=== PATIENT | female | born 1955 | race Caucasian/White ===

== ENCOUNTER 2018-12-23 10:24 | Emergency (ER) | payer OTHER ==
--- NOTE | 2018-12-23 11:01 | UC ---
Throat Pain/Nasal Silvestre HPI - HPI Summary HPI Summary: 63 yo female presents with cold symptoms. She tells me that for the past 4-5 days she has had a sore throat, dry cough, post nasal drip, fatigue, body aches , and hot/cold sweats. She has been taking OTC vitamins and supplements with no change. She has intermittent headaches. She denies sinus symptoms, dizziness, earache, SOB, chest pain, abdominal pain, n/v/d/c, dysuria. She is eating and drinking well. - History of Current Complaint Stated Complaint: SORE THROAT WEAK Time Seen by Provider: 12/23/18 11:01 Hx Obtained From: Patient Onset/Duration: Gradual Onset Severity: Mild Pain Intensity: 3 Pain Scale Used: 0-10 Numeric - Allergies/Home Medications Allergies/Adverse Reactions: Allergies Allergy/AdvReac Type Severity Reaction Status Date / Time No Known Allergies Allergy Verified 12/23/18 11:05 PMH/Surg Hx/FS Hx/Imm Hx - Additional Past Medical History Additional PMH: None - Surgical History Surgical History: None - Family History Known Family History: Positive: Non-Contributory - Social History Lives: With Family Alcohol Use: Occasionally Substance Use Type: None Smoking Status (MU): Never Smoked Tobacco Review of Systems All Other Systems Reviewed And Are Negative: No Constitutional: Positive: Fatigue Skin: Positive: Negative Eyes: Positive: Negative ENT: Positive: Sore Throat Respiratory: Positive: Cough Cardiovascular: Positive: Negative Gastrointestinal: Positive: Negative Neurological: Positive: Negative Psychological: Positive: Negative Physical Exam - Summary Physical Exam Summary: GENERAL: NAD. WDWN. No pain distress. SKIN: No rashes, sores, lesions, or open wounds. HEENT: Head: AT/NC Eyes: EOM intact. Conjunctiva clear without inflammation or discharge. Ears: Hearing grossly normal. TMs intact, no bulging, erythema, or edema. Nose: Nasal mucosa pink and moist. NTTP maxillary and frontal sinus. Throat: Posterior oropharynx with mild erythema and post nasal drip. No exudates or tonsillar enlargement. Uvula midline. NECK: Supple. Left anterior cervical lymph node 1.0cm mobile NTTP. CHEST: CTAB. No accessory muscle use. Breathing comfortably and in no distress. CV: RRR. Pulses intact. Cap refill <2seconds NEURO: Alert. PSYCH: Age appropriate behavior. Triage Information Reviewed: Yes Vital Signs: Vital Signs: Temp Pulse Resp BP Pulse Ox 99.6 F 80 16 145/85 99 12/23/18 11:00 12/23/18 11:00 12/23/18 11:00 12/23/18 11:00 12/23/18 11:00 Laboratory Tests 12/23/18 11:18 Group A Strep Rapid Negative Vital Signs Reviewed: Yes Diagnostics - Radiology CXR Radiology Interpretation Completed By: Radiologist Summary of Radiographic Findings: IMPRESSION: No acute cardiopulmonary process by radiograph Throat Pain/Nasal Course/Dx - Course Course Of Treatment: POC strep negative. CXR as above. Suspect viral illness. Pt is requesting labwork today to further evaluate as she is concerned about thyroid problems. Will draw for CBC, CMP, TSH, and lyme today. Encouraged her to rest and drink plenty of fluids. F/u with a PCP - Differential Dx/Diagnosis Provider Diagnosis: Lymphadenopathy, URI (upper respiratory infection) Discharge ED - Sign-Out/Discharge Documenting (check all that apply): Patient Departure All imaging exams completed and their final reports reviewed: No Studies - Discharge Plan Condition: Stable Disposition: HOME Patient Education Materials: Viral Syndrome (ED) Referrals: No Primary Care Phys,NOPCP [Primary Care Provider] - [facility] [place] [facility] [Outside] - As Soon As Possible Additional Instructions: If you develop a fever, shortness of breath, chest pain, new or worsening symptoms - please call your PCP or go to the ED immediately. Your strep test and chest x-ray were normal today. Your symptoms could be from a viral illness that will improve with rest and time , but we have drawn labwork to further evaluate your symptoms. I recommend that you schedule an appointment with a primary doctor as soon as possible for labwork review and further evaluation and treatment - Billing Disposition and Condition Condition: STABLE Disposition: Home
[2018-12-23 11:05] VITALS: BP 145/85
[2018-12-23 16:24] LABS: ABS Basophils 0.1 10^3/ul (0-0.2); ABS Eosinophils 0.3 10^3/ul (0-0.6); ABS Lymphocytes 1.7 10^3/ul (1.0-4.8); ABS Monocytes 0.6 10^3/ul (0-0.8); ABS Neutrophils 4.7 10^3/ul (1.5-7.7); Eosinophil % 4.2 %; Hematocrit 39 % (35-47); Hemoglobin 13.8 g/dL (12.0-16.0); Lymphocyte % 23.3 %; Mean Corpuscular HGB Conc 35 g/dL (31-36); Mean Corpuscular Hemoglobin 31 pg (27-31); Mean Corpuscular Volume 89 fL (80-97); Mean Platelet Volume 9.2 fL (7.4-10.4); Nucleated Red Blood Cells % 0.1; Platelet Count 274 10^3/uL (150-450); Red Blood Count 4.45 10^6 /uL (3.70-4.87); Red Cell Distribution Width 13 % (10-15); White Blood Count 7.4 10^3/uL (3.5-10.8)
[2018-12-23 16:41] LABS: Calcium 9.7 mg/dL (8.6-10.3); Potassium 4.2 mmol/L (3.5-5.0); Total Bilirubin 0.4 mg/dL (0.2-1.0)
[2018-12-23 16:47] LABS: Albumin/Globulin Ratio 1.5 (1-3); EGFR African American 115.5 (>60); EGFR Non-African American 95.4 (>60); Globulin 2.7 g/dL (2-4); Total Protein 6.7 g/dL (6.4-8.9)
[2018-12-23 16:50] LABS: TSH (Thyroid Stimulating Horm) 1.18 mcIU/mL (0.34-5.60)
== END 2018-12-23 12:06 | disposition home or self-care (01) ==
LOC: UCEAST 10:24
DX: J06.9 Acute upper respiratory infection, unspecified (principal); R59.0 Localized enlarged lymph nodes
CPT/HCPCS: 36415; 71046; 80053; 84443; 85025; 86618; 87651; 99211; G0463